=== PATIENT | female | born 1980 | race Caucasian/White ===

== ENCOUNTER 2025-10-29 16:14 | Outpatient (CLI) | payer BC, SELFPAY | END 2025-10-29 16:15 | disposition home or self-care (01) | PROVIDERS: PCP Family Medicine; Visit Provider Family Medicine | DX: E11.9 Type 2 diabetes mellitus without complications (principal); E78.00 Pure hypercholesterolemia, unspecified; F41.1 Generalized anxiety disorder; J30.9 Allergic rhinitis, unspecified; R53.83 Other fatigue; Z79.899 Other long term (current) drug therapy | CPT/HCPCS: 80053; 80061; 82306; 82607 ==